=== PATIENT | female | born 2000 | race Caucasian/White ===

== ENCOUNTER 2019-06-10 02:32 | Inpatient (IN) | payer MEDICAID ==
[~2019-06-10] VITALS: Ht 160 cm; Wt 76.2 kg
[2019-06-10] MEDS: LACTATED RINGERS 1,000 ML IV SCH ×2 (04:02→05:30)
[2019-06-10] MEDS ORDERED: DEXT 5%/LR + PITOCIN 20UNITS/L 1,000 ML IV SCH ×2 (06:34→10:52)
[2019-06-10] MEDS ORDERED: LACTATED RINGERS 1,000 ML IV SCH ×2 (06:34→06:45)
[2019-06-10] MEDS ORDERED: BUTORPHANOL TARTRATE 2 MG/ML VIAL IV PRN (06:45)
[2019-06-10] MEDS ORDERED: NALOXONE HCL 0.4 MG/ML 1ML VIAL IM PRN (06:45)
[2019-06-10] MEDS ORDERED: MISOPROSTOL 200MCG TABLET VG SCH (06:45)
[2019-06-10] MEDS ORDERED: CITRIC ACID/SODIUM CITRATE SOLN 30ML UDC PO SCH (06:45)
[2019-06-10] MEDS ORDERED: TERBUTALINE SULFATE 1MG/ML VIAL SUBCUT SCH (07:00)
[2019-06-10 07:15] LABS: BASOPHILS % 0.3 % (0.0-2.0); EOSINOPHILS % 0.3 % (0.0-5.0); HEMATOCRIT. 35.1 % (36.0-48.0); LYMPHOCYTES % 14.5 % (20.0-50.0); MEAN CORPUSCULAR HEMOGLOBIN 30.6 pg (28.0-32.0); MEAN CORPUSCULAR VOLUME 89.7 fL (81.0-99.0); MEAN PLATELET VOLUME 11.3 fl (7.4-10.4); MONOCYTES % 8.4 % (2.0-8.0); NEUTROPHILS % 76.5 % (40.0-76.0); PLATELET 84 x1000/uL (130-400); RED BLOOD CELL COUNT 3.91 mill/uL (4.2-5.4); RED CELL DISTRIBUTION WIDTH 15.4 % (11.6-14.6)
[2019-06-10 07:19] LABS: INR 0.9; PARTIAL THROMBOPLASTIN TIME 31.7 sec (23.4-31.0); PROTHROMBIN TIME 9.9 sec (9.6-11.0)
[2019-06-10 07:31] LABS: *AMPHETAMINES SCREEN URINE NEGATIVE (NEGATIVE); *BARBITURATES SCREEN URINE NEGATIVE (NEGATIVE); *BENZODIAZEPINES SCREEN URINE NEGATIVE (NEGATIVE); *COCAINE SCREEN URINE NEGATIVE (NEGATIVE); METHADONE URINE SCREEN NEGATIVE (NEGATIVE); PHENCYCLIDINE URINE SCREEN NEGATIVE (NEGATIVE)
[2019-06-10 07:32] LABS: CANNABINOID URINE SCREEN NEGATIVE (NEGATIVE)
[2019-06-10 07:44] LABS: CLARITY URINE CLEAR (CLEAR); COLOR URINE YELLOW (YELLOW); KETONES URINE NEGATIVE (NEGATIVE); LEUKOCYTE ESTERASE URINE 1+ (NEGATIVE); NITRITE URINE NEGATIVE (NEGATIVE); OCCULT BLOOD URINE NEGATIVE (NEGATIVE); PROTEIN URINE NEGATIVE (NEGATIVE); SPECIFIC GRAVITY URINE 1.013 (1.005-1.030); UROBILINOGEN URINE 0.2 E.U./dL (0.2-1.0)
[2019-06-10 08:06] LABS: HEPATITIS B SURFACE ANTIGEN NEGATIVE
[2019-06-10] MEDS ORDERED: LIDOCAINE HCL/PF 2% 20MG/ML 5 ML/VIAL ONE (09:13)
[2019-06-10] MEDS ORDERED: FENTANYL CITRATE/PF 50MCG/ML 2ML VIAL ONE (09:14)
[2019-06-10] MEDS ORDERED: MORPHINE SULFATE/PF 1MG/ML 10ML AMP ONE (09:58)
[2019-06-10] MEDS ORDERED: LABETALOL 5MG/ML SYR 20 MG/4 ML SYRINGE IV PRN (10:15)
[2019-06-10] MEDS ORDERED: ONDANSETRON HCL 4MG/2ML INJ IV PRN ×2 (10:15→10:30)
[2019-06-10] MEDS ORDERED: MEPERIDINE HCL/PF 25MG/ML CPJ IV PRN (10:15)
[2019-06-10] MEDS ORDERED: HYDROMORPHONE HCL/PF 2MG/ML CPJ IV PRN (10:15)
[2019-06-10] MEDS ORDERED: LANOLIN OINT 7GM TUBE TOP PRN (10:30)
[2019-06-10] MEDS ORDERED: HEMORRHOIDAL SUPP PR PRN (10:30)
[2019-06-10] MEDS ORDERED: RHO(D) IMMUNE GLOBULIN 300 MCG/SYR IM PRN (10:30)
[2019-06-10] MEDS ORDERED: BISACODYL 10MG SUPP PR PRN (10:30)
[2019-06-10] MEDS ORDERED: DIPHENHYDRAMINE 25MG CAPSULE PO PRN (10:30)
[2019-06-10] MEDS ORDERED: ONDANSETRON HCL 4MG/2ML INJ ONE (10:31)
[2019-06-10] MEDS ORDERED: BUPIVACAINE HCL/PF 0.5% (5MG/ML) 10ML ONE (10:31)
[2019-06-10 14:00] VITALS: BP 113/61
[2019-06-10 17:00] VITALS: BP 114/63
[2019-06-10] MEDS: KETOROLAC 30MG/ML VIAL IV SCH ×2 (18:00→20:36)
[2019-06-10] MEDS: MAGNESIUM/ALUMINUM HYDROXIDE/SIMETHICONE 30ML UDC PO SCH (18:00)
[2019-06-10] MEDS: SIMETHICONE 80MG TABLET CHEW PO SCH (18:00)
[2019-06-10 19:30] VITALS: BP 113/64
[2019-06-10 23:57] VITALS: BP 96/50
[2019-06-11] MEDS: KETOROLAC 30MG/ML VIAL IV SCH ×2 (02:34→10:15)
[2019-06-11 04:48] VITALS: BP 93/54
[2019-06-11 07:11] LABS: BASOPHILS % 0.2 % (0.0-2.0); EOSINOPHILS % 0.3 % (0.0-5.0); HEMATOCRIT. 26.7 % (36.0-48.0); HEMOGLOBIN. 9.2 g/dL (12.0-16.0); LYMPHOCYTES % 16.5 % (20.0-50.0); MEAN CORPUSCULAR HEMOGLOBIN 30.9 pg (28.0-32.0); MEAN CORPUSCULAR VOLUME 89.8 fL (81.0-99.0); MEAN PLATELET VOLUME 11.4 fl (7.4-10.4); MONOCYTES % 7.1 % (2.0-8.0); NEUTROPHILS % 75.9 % (40.0-76.0); PLATELET 81 x1000/uL (130-400); RED BLOOD CELL COUNT 2.97 mill/uL (4.2-5.4); RED CELL DISTRIBUTION WIDTH 15.2 % (11.6-14.6)
[2019-06-11 08:30] VITALS: BP 97/54
[2019-06-11 08:45] VITALS: BP 88/48
[2019-06-11] MEDS: PRENATAL VIT/FE FUMARATE/FA TABLET PO SCH (10:15)
[2019-06-11] MEDS: FERROUS SULFATE 325MG TABLET PO SCH ×3 (10:16→16:14)
[2019-06-11] MEDS: SIMETHICONE 80MG TABLET CHEW PO SCH ×3 (10:17→20:58)
[2019-06-11 11:40] VITALS: BP 97/54
[2019-06-11] MEDS: HYDROCODONE/ACETAMINOPHEN 10/325MG TABLET PO PRN ×2 (16:14→23:13)
[2019-06-11 17:00] VITALS: BP 95/49
[2019-06-11 20:34] VITALS: BP 101/63
[2019-06-11] MEDS: IBUPROFEN 800MG TABLET PO PRN (20:57)
[2019-06-11] MEDS: DOCUSATE SODIUM 100MG CAPSULE PO SCH (20:58)
[2019-06-11] MEDS: MAGNESIUM/ALUMINUM HYDROXIDE/SIMETHICONE 30ML UDC PO SCH (20:58)
[2019-06-12 05:14] VITALS: BP 96/63
[2019-06-12 08:30] VITALS: BP 106/64
[2019-06-12] MEDS: PRENATAL VIT/FE FUMARATE/FA TABLET PO SCH (12:16)
[2019-06-12] MEDS: FERROUS SULFATE 325MG TABLET PO SCH ×2 (12:16→17:54)
[2019-06-12] MEDS: IBUPROFEN 800MG TABLET PO PRN ×2 (12:16→17:54)
[2019-06-12] MEDS: SIMETHICONE 80MG TABLET CHEW PO SCH ×3 (12:16→22:15)
[2019-06-12 16:00] VITALS: BP 106/62
[2019-06-12 19:30] VITALS: BP 106/72
[2019-06-12] MEDS: MAGNESIUM/ALUMINUM HYDROXIDE/SIMETHICONE 30ML UDC PO SCH (22:15)
[2019-06-12] MEDS: DOCUSATE SODIUM 100MG CAPSULE PO SCH (22:15)
[2019-06-13] MEDS: IBUPROFEN 800MG TABLET PO PRN ×2 (00:02→09:00)
[2019-06-13 04:00] VITALS: BP 95/53
[2019-06-13 07:53] VITALS: BP 113/77
[2019-06-13] MEDS: MAGNESIUM/ALUMINUM HYDROXIDE/SIMETHICONE 30ML UDC PO SCH (08:59)
[2019-06-13] MEDS: FERROUS SULFATE 325MG TABLET PO SCH (09:00)
[2019-06-13] MEDS: PRENATAL VIT/FE FUMARATE/FA TABLET PO SCH (09:00)
[2019-06-13] MEDS: SIMETHICONE 80MG TABLET CHEW PO SCH (09:00)
[2019-06-13 17:54] LABS: OPIATES URINE SCREEN NEGATIVE (NEGATIVE)
== END 2019-06-13 10:30 | disposition home or self-care (01) | DRG 540 ==
LOC: 8 EST LDRP 02:32 → OBSVTOIN 02:32 → 8 EST LDRP 06:59 → 8EST 14:15
PROVIDERS: ADMIT Obstetrics & Gynecology; ATTEND Obstetrics & Gynecology
PROC: 10D00Z1 Extraction of Products of Conception, Low, Open Approach (ICD-10-PCS; principal; 2019-06-10)
DX: O80 Encounter for full-term uncomplicated delivery (principal); Z37.0 Single live birth; Z3A.39 39 weeks gestation of pregnancy
CPT/HCPCS: 36415; 80305; 81003; 85025; 86592; 86703; 86762; 86850; 86870; 86886; 86900; 87340; 88307; 90384; J1885; J2274; J2405; J2590; J3010; J3105; J3490